=== PATIENT | female | born 1985 | race Caucasian/White ===

== ENCOUNTER 2018-11-09 10:55 | Emergency (ER) | payer MEDICAID, SELFPAY ==
[2018-11-09 11:02] VITALS: BP 135/68; PULSE 85; RESP 16; TEMP 36.2; O2SAT 98
--- NOTE | 2018-11-09 11:16 | ED.GENADUL_ITS ---
Discharge Plan Disposition Patient Disposition: HOME Condition: Fair Discharge Details Chief Complaint: Sorethroat Clinical Impression: Acute pharyngitis Primary Care Provider: Michael Yanez ED Provider: Flor Celaya Home Meds and New Rx's Prescriptions: New azithromycin 500 mg tablet 500 mg PO DAILY 5 Days Qty: 5 RF: 0 Continued prednisone 20 MG tablet PO DAILY Qty: 11 RF: 0 citalopram 20 MG tablet 20 mg PO DAILY Qty: 30 RF: 5 Discharge Instructions Instructions: Pharyngitis (ED) Additional Instructions: Encourage hydration. Tylenol and/or ibuprofen as needed for discomfort. Please take antibiotics as prescribed. Even if symptoms improve, please take entire course. If you develop new or worsening symptoms please seek care urgently once again. Otherwise, please follow-up with primary care to discuss recurrence of symptoms Referrals: Michael Yanez [Primary Care Provider] - Discharge Data Discharge Date/Time-TO BE ENTERED AT DEPARTURE: 11/09/18 11:34 Medical Decision Making Patient is a 33 year old female with c/c of sore throat x 1 week. 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 As discussed tonsillectomy with her primary care who advised that it occurs again she would need referral to ENT. States that her discomfort has been increasing. She denies any fevers or chills. No difficulty with hydration. No nausea or vomiting. Denies any abdominal pain. On exam, bilateral tonsils are notable for white exudate, hypertrophy and erythema. Uvula is midline. No trismus. No swelling of the tongue. Patient has anterior cervical lymphadenopathy. Rapid strep testing negative. Discussed these findings with the patient. She advised that she has been negative most time she is been tested with the rapid but is found to be positive a few days later with the secondary testing in the lab. Patient is requesting treatment for strep throat at this time. Clinically, this does correlate well with strep. She also reports is been tested for mono multiple times in the past. Does not believe she has Montanari she will Ceja testing again. She reports that this is exactly the same as previous episodes of streptococcal pharyngitis she has had in the past. Patient will be treated with azithromycin she has allergy to penicillin. Encourage hydration. Advised changing her toothbrush. She will contact primary care to schedule follow-up and discussed referral to ENT. All of her questions and concerns were addressed and she is in agreement this plan Patient is allergic to penicillin, will treat with azithromycin. Patient is no longer taking citalopram HPI General Mode of arrival: ambulatory . Date/Time Provider Initiated Documentation: 11/09/18 11:02 . Limitations to Documentation: no limitations . Information obtained by: patient . History of Present Illness 33 year old F presents to the emergency department with the chief complaint of sore throat, described as moderate, with intensity rated at 7. Quality is described as burning, and is localized to the mouth (throat). Patient reports no radiation. Patient started experiencing this week(s) (1) and it has been constant. No relieving factors improve symptom(s), No exacerbating factors reported . Patient notes denies chest pain, cough, fever/chills, loss of appetite, nausea/vomiting, rash and shortness of breath. Patient did receive the following treatments prior to arrival, none Related Data Home Medications Medication Instructions Recorded Confirmed prednisone 0 PO DAILY #11 tab 03/14/18 citalopram 20 mg PO DAILY #30 tab-cap 06/14/18 azithromycin 500 mg PO DAILY 5 Days #5 tab 11/09/18 Previous Rx's Medication Instructions Recorded citalopram 20 mg PO DAILY #30 tab-cap 06/14/18 azithromycin 500 mg PO DAILY 5 Days #5 tab 11/09/18 Allergies Allergy/AdvReac Type Severity Reaction Status Date / Time Penicillins Allergy Unknown unknown Unverified 11/09/18 11:27 General Stated Complaint: Sorethroat SIOBHAN: 4 Review of Systems Constitutional Reports as per HPI and Denies headache(s) Eyes Reports as per HPI, Denies eye discharge and Denies irritation ENT Reports as per HPI, Denies ear discharge, Reports otalgia (left), Denies headache(s), Denies nasal congestion, Denies nasal discharge, Reports sore throat, Reports throat swelling and Denies tongue swelling Cardiovascular Reports as per HPI, Denies chest pain and Denies dyspnea Respiratory Reports as per HPI, Denies cough and Denies dyspnea Gastrointestinal Reports as per HPI, Denies abdominal pain, Denies change in bowel habits, Denies nausea and Denies vomiting Integumentary/Breasts Reports as per HPI and Denies rash Neurologic Denies headache(s) Allergic/Immunologic Reports throat swelling and Denies tongue swelling PFS Social History Smoking/Tobacco Use Status: Former Tobacco Use Exam Const General: cooperative, healthy appearing, comfortable, no acute distress, well developed and well groomed Nutritional Appearance: average body habitus and well nourished Orientation: alert and awake [facility] Head: normal to inspection, normocephalic and atraumatic Ears: hearing grossly normal bilaterally, external ears normal and TM's normal bilaterally General nose exam: external nose normal and nares normal Face and sinus: normal facial exam, sinuses nontender and face symmetric Mouth: oral mucosae normal, lip normal, tongue normal, oropharynx normal, moist mucous membranes, no muffled voice, no trismus and No restricted motion Teeth and gingiva: dentition normal Throat: uvula midline, abnormal tonsil bilaterally erythema, exudates and hypertrophy, no peritonsillar masses, posterior oropharynx abnormal erythema and exudates, uvula not displaced and no uvular edema Eyes General: appearance normal, both eyes and all related structures Neck Neck: normal visual inspection, full ROM, no meningeal signs, lymphadenopathy and tender Resp Effort & Inspection: normal respiratory effort, able to speak in complete sentences and no respiratory distress Auscultation: clear to auscultation bilaterally, no rales, no rhonchi and no wheezes Cardio Rate: regular rate Rhythm: regular rhythm Heart Sounds: S1 normal and S2 normal Skin General skin exam: no rashes or lesions noted Neuro General: alert and awake Cognition: normal cognition Speech: speech normal Gait: normal gait Psych Appearance: grossly normal and well kempt Mental Status: mental status grossly normal Speech and Movement: speech and movement normal Course Vital Signs Temperature 36.2 C L 11/09/18 11:02 Pulse 85 11/09/18 11:02 Respiratory Rate 16 11/09/18 11:02 Blood Pressure 135/68 11/09/18 11:02 Pulse Oximetry 98 11/09/18 11:02 Temperature 36.2 C L 11/09/18 11:02 Temperature Source Skin 11/09/18 11:02 Pulse 85 11/09/18 11:02 Respiratory Rate 16 11/09/18 11:02 Blood Pressure 135/68 11/09/18 11:02 Blood Pressure Position Supine 11/09/18 11:02 Pulse Oximetry 98 11/09/18 11:02 Oxygen Delivery Method Room Air 11/09/18 11:02 Oxygen Flow Rate 0 11/09/18 11:02 Pain Level 7 11/09/18 11:02
[2018-11-09 11:32] VITALS: BP 135/68; PULSE 85; RESP 16; TEMP 36.2; O2SAT 98
== END 2018-11-09 11:34 | disposition home or self-care (01) ==
PROVIDERS: Emergency Provider Physician Assistant; PCP Family Medicine
DX: J02.9 Acute pharyngitis, unspecified (principal); Z87.891 Personal history of nicotine dependence
CPT/HCPCS: 87880; 99283; 87081

== ENCOUNTER 2019-09-17 07:39 | Emergency (ER) | payer MEDICAID, SELFPAY ==
[2019-09-17 07:46] VITALS: BP 124/81; PULSE 98; RESP 16; TEMP 36.8; O2SAT 100
--- NOTE | 2019-09-17 08:11 | DI.RAD_ITS ---
EXAM: XR PELVIS AP INDICATION: Left lower back/iliac crest tenderness. COMPARISON: No exams were available for comparison TECHNIQUE: 2D digital imaging was performed. FINDINGS: No acute bone, joint, or soft tissue abnormality is present. IMPRESSION: No acute abnormality.
--- NOTE | 2019-09-17 08:11 | DI.RAD_ITS ---
EXAM: XR LUMBAR SPINE COMPLETE INDICATION: Left lower lumbar spine tenderness s/p fall. COMPARISON: CHEST 2 VIEWS PA,LAT from 11/12/2012 TECHNIQUE: 2D digital imaging was performed. FINDINGS: There are 5 lumbar type vertebral bodies. No spondylolysis or spondylolisthesis is present. There a re no acute fractures or subluxations. There is again seen deformity of the superior endplate of L1. This is unchanged compared to the chest x-ray from 11/12/2012. Minimal degenerative changes are se en in the lumbar spine. IMPRESSION: No acute abnormality.
[2019-09-17] MEDS: Acetaminophen 500 MG TAB 1000 MG PO (08:23)
--- NOTE | 2019-09-17 08:38 | W.ED.GENAD ---
Discharge Plan Disposition Patient Disposition: HOME Discharge Details Chief Complaint: Nk/Back Pain Clinical Impression: Lower back injury Primary Care Provider: Michael Yanez ED Provider: Emigdio Lombardo Discharge Instructions Instructions: Low Back Strain (ED), Acute Low Back Pain (ED) Additional Instructions: Your x-rays were negative for fracture in the emergency depart today. Most likely muscular injury. Appropriate rest is important for healing. Work note provided. Start taking Tylenol 1000 mg every 8 hours and ibuprofen 600 mg every 8 hours regularly for pain. Return to the emergency department should your pain significantly increase or you develop abdominal tenderness, numbness/weakness in the lower legs. Follow-up with your primary care provider should your symptoms persist. Stand Alone Forms: Work Release Referrals: Michael Yanez. [Primary Care Provider] - 1 week Medical Decision Making This is a nontoxic-appearing 34-year-old female who presents to the emergency department with left lower back pain status post fall Tuesday evening. Neurologically intact on exam. She has focal tenderness over the left lower paraspinal tenderness radiating up over the left iliac crest. Abdominal exam is benign. Vitals are stable here. Her x-rays show no acute obvious bony injury. Discussed supportive measures at home including local modalities and appropriate ibuprofen/acetaminophen dosing. Return precautions discussed as well which would include severe worsening pain, abdominal pain, vomiting, numbness and/or weakness of the extremities. She will follow-up with her primary care provider should her symptoms persist. HPI General Date/Time Provider Initiated Documentation: 09/17/19 07:58. HPI Narrative: Patient is a 34-year-old female with no significant past medical history who presents to the emergency department with left lower back pain status post fall 1939 8 hours ago. Patient states that she was walking up stairs roughly 6 steps when she fell backwards striking her lower left back. She does report a head injury but no LOC. She denies any headache at this time. No neck pain. Her biggest complaint is lower left posterior hip/lumbar back pain. She states pain is worse with ambulation. She reports shooting pain when she steps on her left foot originating from the back of the leg up to the back. No numbness or tingling in the foot. She denies any urinary or fecal incontinence/retention. She takes no medications on a regular basis. Related Data Allergies Allergy/AdvReac Type Severity Reaction Status Date / Time Penicillins Allergy Unknown unknown Unverified 09/17/19 07:49 General Stated Complaint: Nk/Back Pain SIOBHAN: 4 Review of Systems Constitutional Constitutional: Denies headache(s) and Denies weakness ENT Ears, Nose, Mouth, and Throat: Denies headache(s) and Denies neck pain Cardiovascular Cardiovascular: Denies pedal edema, Denies edema, Denies claudication and Denies dyspnea Respiratory Respiratory: Denies dyspnea Gastrointestinal Gastrointestinal: Denies abdominal pain and Denies vomiting Genitourinary Genitourinary: Denies hematuria Musculoskeletal Musculoskeletal: Reports abnormal gait, Reports back pain, Denies joint swelling, Denies limited range of motion, Denies neck pain, Denies numbness and Reports radiating pain into limb Neurologic Neurologic: Reports abnormal gait, Denies confusion, Denies headache(s), Denies focal weakness, Denies numbness, Reports radicular pain and Denies weakness Psychiatric Psychiatric: Denies confusion [facility] Social History Smoking/Tobacco Use Status: Former Tobacco Use Drug use: Never Do you feel safe in your relationship?: Yes Exam Const General: cooperative, healthy appearing and no acute distress Orientation: alert, awake and oriented x3 HENMT Head: normal to inspection Face and sinus: normal facial exam Mouth: oral mucosae normal Eyes General: appearance normal, both eyes and all related structures Pupils: PERRL EOM: EOM intact bilaterally Neck Neck: normal visual inspection, full ROM and trachea midline Chest Chest: normal inspection of the chest and normal palpation of entire chest wall Resp Effort & Inspection: normal respiratory effort Auscultation: clear to auscultation bilaterally Cardio Rate: regular rate Rhythm: regular rhythm Pulses: normal peripheral pulses GI Inspection: normal to inspection and no abdominal wall ecchymosis Palpation: soft Back/Spine/Pelvis Back: no CVA tenderness Thoracic/Lumbar Spine: pain with thoraco-lumbar ROM, paraspinal tenderness (Left lower lumbar region), thoraco-lumbar ROM limited, No thoracic spinal tenderness and No lumbar spinal tenderness Pelvis: no pain with anterior-posterior compression and no pain with lateral compression Skin Trauma: no lacerations or abrasions Neuro Motor: muscle tone normal throughout Sensory Exam: no sensory deficits noted Course Vital Signs Vital signs: Vital Signs Temperature 36.8 C 09/17/19 07:46 Pulse 98 H 09/17/19 07:46 Respiratory Rate 16 09/17/19 07:46 Blood Pressure 124/81 09/17/19 07:46 Pulse Oximetry 100 09/17/19 07:46 Temperature 36.8 C 09/17/19 07:46 Temperature Source Skin 09/17/19 07:46 Pulse 98 H 09/17/19 07:46 Respiratory Rate 16 09/17/19 07:46 Respiratory Effort Non-Labored 09/17/19 07:46 Blood Pressure 124/81 09/17/19 07:46 Blood Pressure Position Sitting 09/17/19 07:46 Pulse Oximetry 100 09/17/19 07:46 Oxygen Delivery Method Room Air 09/17/19 07:46 Oxygen Flow Rate 0 09/17/19 07:46 Pain Level 7 09/17/19 07:46
== END 2019-09-17 09:02 | disposition home or self-care (01) ==
LOC: ER 09:01
PROVIDERS: Emergency Provider Physician Assistant; PCP Family Medicine
DX: S39.92XA Unspecified injury of lower back, initial encounter (principal); W01.0XXA Fall on same level from slipping, tripping and stumbling without subsequent striking against object, initial encounter
CPT/HCPCS: 99284; 72110; 72170; 99282

== ENCOUNTER 2020-01-07 13:49 | Emergency (ER) | payer MEDICAID, SELFPAY ==
[2020-01-07 14:00] VITALS: BP 119/70; PULSE 75; RESP 16; TEMP 36.8; O2SAT 99
--- NOTE | 2020-01-07 14:28 | ED.GENADUL_ITS ---
Discharge Plan Disposition Patient Disposition: HOME Condition: Stable Discharge Details Chief Complaint: DentalOral Clinical Impression: Candidiasis, mouth Primary Care Provider: Michael Yanez ED Provider: Foster Velásquez Home Meds and New Rx's Prescriptions: New clotrimazole 10 mg leonidas 10 mg MM QID 14 Days Qty: 56 RF: 0 Discharge Instructions Instructions: Oral Candidiasis (ED) Additional Instructions: Clotrimazole as directed. Please watch for new or worsening symptoms and return to the ER for any concerns I do recommend follow-up with your primary care perico marin in the next week or 2, if symptoms persist then larger work-up may be indicated. Medical Decision Making 34-year-old female otherwise healthy presents with what appears to be thrush. Patient has no obvious risk factors. Discussed that we would treat at this time for thrush however she was encouraged to return immediately to the ER for new or worsening symptoms. If symptoms persist or evolve a much larger work-up may need to be initiated as thrush and an otherwise healthy person is somewhat peculiar. Patient is comfortable with this plan has no questions or concerns Medical Records Medical records reviewed: Yes I reviewed the patient's medical records. HPI General Mode of arrival: ambulatory . Date/Time Provider Initiated Documentation: 01/07/20 14:06 . Limitations to Documentation: no limitations . Information obtained by: patient . HPI Narrative: 34-year-old female otherwise healthy presents for white patches on her past week or so. They are nonpainful. When she brushes her teeth and tongue, the white patches partially come off. She denies any other symptoms whatsoever. Denies ear pain, cough, fever, sore throat, skin rash. Patient reports that she had gestational diabetes but does not have diabetes. She contacted her primary care provider and they could not see her for another week so she came to the ER for evaluation. Related Data Home Medications Medication Instructions Recorded Confirmed clotrimazole 10 mg MM QID 14 Days #56 tab 01/07/20 Previous Rx's Medication Instructions Recorded clotrimazole 10 mg MM QID 14 Days #56 tab 01/07/20 Allergies Allergy/AdvReac Type Severity Reaction Status Date / Time Penicillins Allergy Unknown unknown Unverified 01/07/20 14:06 General Stated Complaint: DentalOral SIOBHAN: 4 Review of Systems Constitutional Constitutional: Denies chills, Denies fever(s), Denies headache(s) and Denies poor appetite Eyes Eyes: Denies eye discharge ENT Ears, Nose, Mouth, and Throat: Denies headache(s), Denies mouth pain, Denies neck pain and Denies sore throat Respiratory Respiratory: Denies cough Gastrointestinal Gastrointestinal: Denies abdominal pain, Denies nausea and Denies vomiting Musculoskeletal Musculoskeletal: Denies myalgias and Denies neck pain Integumentary/Breasts Skin/Breast: Denies rash Neurologic Neurologic: Denies headache(s) [facility] Social History Smoking/Tobacco Use Status: Current every day Tobacco Type: cigarettes Alcohol Intake: current Alcohol Intake frequency: a few times a month Drug use: Never Do you feel safe at home: Yes Do you feel safe in your relationship?: Yes Exam Const General: cooperative, healthy appearing, comfortable and no acute distress Orientation: alert and awake HENMT Head: normal to inspection, normocephalic and atraumatic Ears: external ears normal, TM's normal bilaterally and EAC's normal Mouth: moist mucous membranes and tongue abnormal with white coating (Patchy in nature) Teeth and gingiva: dentition normal Throat: posterior oropharynx normal Eyes Conjunctivae: conjunctivae normal Neck Neck: normal visual inspection, full ROM, no lymphadenopathy, no meningeal signs, trachea midline and supple Resp Effort & Inspection: normal respiratory effort Auscultation: clear to auscultation bilaterally Cardio Rate: regular rate Rhythm: regular rhythm Skin General skin exam: no rashes or lesions noted Neuro General: alert, awake and no focal motor deficits Speech: speech normal Sensory Exam: no sensory deficits noted Extrem General: normal to inspection Psych Appearance: grossly normal Mental Status: mental status grossly normal Course Vital Signs Vital signs: Vital Signs Temperature 36.8 C 01/07/20 14:00 Pulse 75 01/07/20 14:00 Respiratory Rate 16 01/07/20 14:00 Blood Pressure 119/70 01/07/20 14:00 Pulse Oximetry 99 01/07/20 14:00 Temperature 36.8 C 01/07/20 14:00 Temperature Source Temporal Artery Scan 01/07/20 14:00 Pulse 75 01/07/20 14:00 Respiratory Rate 16 01/07/20 14:00 Respiratory Effort Non-Labored 01/07/20 14:05 Blood Pressure 119/70 01/07/20 14:00 Blood Pressure Position Sitting 01/07/20 14:00 Pulse Oximetry 99 01/07/20 14:00 Oxygen Delivery Method Room Air 01/07/20 14:00 Oxygen Flow Rate 0 01/07/20 14:00 Pain Level 0 01/07/20 14:07
== END 2020-01-07 14:37 | disposition home or self-care (01) ==
PROVIDERS: Emergency Provider Physician Assistant; PCP Family Medicine
DX: B37.0 Candidal stomatitis (principal)
CPT/HCPCS: 99283

== ENCOUNTER 2020-02-18 10:03 | Outpatient (CLI) | payer MEDICAID, SELFPAY ==
[2020-02-18 10:46] LABS: HCG Quant, Pregnancy 58 mIU/mL (1-3)
[2020-02-19 14:11] LABS: Chlamydia Result Negative (Negative); GC Result Negative (Negative)
== END 2020-02-18 10:23 ==
PROVIDERS: PCP Family Medicine; Visit Provider Nurse Practitioner Family
DX: Z11.3 Encounter for screening for infections with a predominantly sexual mode of transmission (principal); Z32.01 Encounter for pregnancy test, result positive
CPT/HCPCS: 36415; 87491; 87591; 84702

== ENCOUNTER 2020-02-20 12:26 | Outpatient (CLI) | payer MEDICAID, SELFPAY ==
[2020-02-20 13:17] LABS: HCG Quant, Pregnancy 24 mIU/mL (1-3)
[2020-02-21 09:33] LABS: Hepatitis C Ab w Rflx HCV PCR Negative (Negative)
[2020-02-21 09:58] LABS: Hepatitis B Surface Ag Negative (Negative)
[2020-02-21 11:10] LABS: HIV-1/2 Ag & Ab Screen Negative (Negative)
[2020-02-21 14:08] LABS: Syphilis Total Ab w/Reflex Nonreactive (Nonreactive)
== END 2020-02-20 12:46 ==
PROVIDERS: Nurse Practitioner Family; PCP Family Medicine; Visit Provider Obstetrics & Gynecology
DX: N93.8 Other specified abnormal uterine and vaginal bleeding (principal); Z32.01 Encounter for pregnancy test, result positive; Z98.51 Tubal ligation status; Z11.4 Encounter for screening for human immunodeficiency virus [HIV]; Z11.59 Encounter for screening for other viral diseases
CPT/HCPCS: 36415; 86803; 87340; 87389; 84702; 86780

== ENCOUNTER 2020-02-27 01:07 | Outpatient (CLI) | payer MEDICAID, SELFPAY ==
[2020-02-27 14:42] LABS: HCG Quant, Pregnancy 1 mIU/mL (1-3)
== END 2020-02-27 01:27 ==
PROVIDERS: PCP Family Medicine; Visit Provider Obstetrics & Gynecology
DX: O03.9 Complete or unspecified spontaneous abortion without complication (principal); Z98.51 Tubal ligation status
CPT/HCPCS: 36415; 84702

== ENCOUNTER 2021-03-17 03:00 | Outpatient (CLI) | payer MEDICAID, SELFPAY ==
[2021-03-18 13:30] LABS: COVID-19 RT-PCR UVMMC Result Negative (Negative)
== END 2021-03-17 03:01 | disposition home or self-care (01) ==
LOC: LBO 03:01
PROVIDERS: PCP Family Medicine; Visit Provider Family Medicine
DX: Z20.822 Contact with and (suspected) exposure to COVID-19 (principal)
CPT/HCPCS: U0003

== ENCOUNTER 2021-06-18 08:40 | Observation (INO) | payer MEDICAID, SELFPAY ==
[2021-06-18] VITALS (38 sets, daily range): BP systolic 103–149; BP diastolic 63–118; PULSE 69–124; RESP 13–30; TEMP 36–36.7; O2SAT 98–100
--- NOTE | 2021-06-18 08:45 | RT.EKG_ITS ---
APPROVED REPORT Exam: Resting ECG Reason for Exam: chest pain Patient Location: E HR:101 bpm ECG Measurements Heart Rate 101 AXIS WV 184 P 72 QRSd 84 QRS 67 QT 361 T -2 QTc 468 Conclusion Sinus tachycardia. Narrow complex qrs
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
[2021-06-18] MEDS: ACETAMINOPHEN 1,000 MG/100 ML BTL 400 MG IVPB (09:20)
[2021-06-18 09:35] LABS: Abs Immature Grans 0.13 10^3/uL (0.0-0.06); Absolute Basophil Count 0.07 10^3/uL (0.0-0.2); Absolute Eosinophil Count 0.19 10^3/uL (0.0-0.7); Absolute Lymphocyte Count 2.12 10^3/uL (1.2-3.4); Absolute Monocyte Count 0.65 10^3/uL (0.1-0.8); Absolute Neutrophil Count 6.81 10^3/uL (1.2-6.7); Basophils % 0.7; Eosinophils % 1.9; HCT 50.5 % (36.0-46.0); HGB 17.3 g/dL (11.2-15.7); Immature Grans % 1.3; Lymphocytes % 21.3; MCH 32.3 pg (27.0-33.0); MCHC 34.3 % (32.0-36.0); MCV 94.4 fL (80-95); MPV 8.8 fL (8.0-11.0); Monocytes % 6.5; Neutrophils % 68.3; Nucleated RBC 0 %; Platelet Count 254 10^3/uL (130-400); RBC 5.35 10^6/uL (3.93-5.22); RDW 13.2 % (11.7-14.6); RDW-SD 46.5 fL; WBC 9.97 10^3/uL (4.4-10.8)
[2021-06-18 09:49] LABS: ALT 38 U/L (14-59); AST 37 U/L (15-37); Albumin 4.5 g/dL (3.4-5.0); Alkaline Phosphatase 65 U/L (46-116); Anion Gap 12.2 mmol/L (3-11); BUN 5 mg/dL (7-18); Bilirubin, Total 0.4 mg/dL (0.2-1.0); CO2 26.8 mmol/L (21.0-32.0); CREATININE 0.6 mg/dL (0.55-1.02); Calcium 9.9 mg/dL (8.5-10.1); Chloride 102 mmol/L (98-107); ETHANOL BLOOD 118.5 mg/dL (<3); Glucose 110 mg/dL (74-106); Potassium 3.5 mmol/L (3.5-5.1); Sodium 141 mmol/L (136-145); Total Protein 8.4 g/dL (6.4-8.2)
[2021-06-18 09:56] LABS: Troponin I < 0.05 ng/mL (<0.06)
[2021-06-18 10:09] LABS: HCG Qual (Serum) Negative
[2021-06-18] MEDS: Omnipaque 350 MG/ML 100 ML BTL IV (10:09)
[2021-06-18 10:25] LABS: Bilirubin Negative (Negative); Blood Moderate (Negative); Clarity Clear (Clear); Glucose Negative (Negative); Ketones Negative (Negative); Leukocyte Esterase Negative (Negative); Nitrite Negative (Negative); Urobilinogen 0.2 EU/dL (Up TO 0.2)
[2021-06-18 10:36] LABS: Bacteria Few HPF (Negative); C & S Indicated? No; Casts Negative LPF (Negative); Crystals Negative HPF (Negative); Epithelial Cells Few HPF (Negative); Mucus Negative (Negative); Other Cells Rare Renal (Negative); WBC 0-2 HPF (0-5)
[2021-06-18] MEDS: Normal Saline 1,000 ML 1000 ML IV (10:58)
[2021-06-18 11:51] LABS: Source Nasal/Nares
[2021-06-18] MEDS: Pantoprazole 40 MG VIAL IVP (12:18)
[2021-06-18] MEDS: Ketorolac 30 MG/ML VIAL IVP (12:18)
[2021-06-18 12:43] LABS: COVID-19 PCR Negative (Negative)
[2021-06-18] MEDS: oxyCODONE 5 MG TAB PO ×3 (12:57→22:03)
[2021-06-18] MEDS: Docusate Sodium 100 MG CAP PO ×2 (14:16→19:38)
--- NOTE | 2021-06-18 14:25 | W.ANESNERVE ---
Nerve Block Single Injection Procedure Date and Time Date Performed: 06/18/21 Procedure Start: 13:27 Location Where Procedure Performed Procedure Location: Med/Surg (Room 230) Reason Performed: Acute Pain Management (Right rib fractures 2,3,4) Pain Diagnosis: Rib Pain Requesting Provider: Jina Aguillon Timeout Performed Timeout Performed: Yes Monitoring Used Blood Pressure and SpO2 Sterility Sterility: Hand Hygiene, Surgical Cap, Surgical Mask, Sterile Gloves and Chlorhexidine Sedation Given During Procedure Sedation Given (Indicate Dose Given): No Sedation given (Oxycodone given to patient by RN prior to block placement) Patient Mental Status Patient Mental Status: Awake Nerve Block 1st Nerve Block: Laterality: Right Block Type: Erector Spinae (Upper) Needle / Catheter Used: 100mm SonoPlex II Local Anesthetic Bolus (Indicate Dose Given): Lidocaine used for local infiltration of skin, Injected in 3-5ml increments after negative blood aspiration, Bupivacaine 0.5% Dose:: 20mL and Exparel Dose:: 10mL Additives (Indicate Dose Given): None Ultrasound: Sterile probe cover and gel used Ultrasound Image Saved?: Yes Nerve Stimulator: Not Used Paresthesia: None Post Procedure Pain score (0-10): 0 Procedure Tolerated: No Complications and Patient tolerated well Procedure Outcome: Successful Procedure Comment: right rib pain resolved, increased ability to take deep breaths with no rib pain on right side. pt still reports pain from Left lower abdomen. Performed By: Leta Denis Supervised By: Dane Price
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
[2021-06-18] MEDS: Acetaminophen 325 MG TAB 650 MG PO ×2 (18:03→22:03)
[2021-06-19] MEDS: Acetaminophen 325 MG TAB 650 MG PO ×3 (03:46→12:10)
[2021-06-19] MEDS: oxyCODONE 5 MG TAB PO ×2 (03:46→07:54)
[2021-06-19 04:11] VITALS: BP 106/68; PULSE 71; RESP 20; TEMP 37; O2SAT 100
[2021-06-19 07:15] VITALS: BP 139/88; PULSE 70; RESP 19; TEMP 36.8
[2021-06-19 07:54] LABS: HGB 14.2 g/dL (11.2-15.7)
[2021-06-19] MEDS: Docusate Sodium 100 MG CAP PO (07:54)
[2021-06-19] MEDS: Normal Saline Flush 10 ML SYR IVP ×2 (07:54→12:12)
--- NOTE | 2021-06-19 08:46 | W.PM.PROGNOT ---
Date of Service Date of service: 06/19/21 Time of Service: 08:47 Assessment and Plan Assessment and plan (1) Minor laceration of spleen: Status: Acute (2) Closed rib fracture: Status: Acute Assessment and plan: Pain is better controlled. Discussed that she will continue to have discomfort. Discussed the importance of deep breathing periodically. She is transferring and getting around her room independently. Hgb is stable. She expressed that she would like to be d/c home today. D/C home later today. (3) Face lacerations: Status: Acute Subjective Subjective Interval history since last seen: Patient reports that her left side is more painful than right. She feels that the nerve block has started to wear off. She describes transferring and ambulating within her room independently. When I start to move and when I stop moving is when it hurts the most. Objective Last Vital Signs Temp 36.8 C 06/19/21 07:15 Pulse 70 06/19/21 07:15 Resp 19 06/19/21 07:15 BP 139/88 06/19/21 07:15 Pulse Ox 100 06/19/21 04:11 Laboratory Results - last 24 hr 06/18/21 06/18/21 06/18/21 09:20 09:20 09:20 WBC 9.97 RBC 5.35 H Hgb 17.3 H Hct 50.5 H MCV 94.4 MCH 32.3 MCHC 34.3 RDW 13.2 Plt Count 254 MPV 8.8 Immature Gran % 1.3 Neutrophils % 68.3 Lymphocytes % 21.3 Monocytes % 6.5 Eosinophils % 1.9 Basophils % 0.7 Nucleated RBC % 0 Absolute Neutrophils 6.81 H Absolute Lymphocytes 2.12 Absolute Monocytes 0.65 Absolute Eosinophils 0.19 Absolute Basophils 0.07 Sodium 141 Potassium 3.5 Chloride 102 Carbon Dioxide 26.8 Anion Gap 12.2 H BUN 5 L Creatinine 0.6 Estimated GFR/1.73 m2 >= 60.00 Glucose 110 H Calcium 9.9 Total Bilirubin 0.4 AST 37 ALT 38 Alkaline Phosphatase 65 Troponin I Total Protein 8.4 H Albumin 4.5 Serum HCG, Qual Negative Urine Color Urine Clarity Urine pH Ur Specific [place] Urine Protein Urine Ketones Urine Blood Urine Nitrite Urine Bilirubin Urine Urobilinogen Ur Leukocyte Esterase Urine RBC Urine WBC Ur Epithelial Cells Urine Crystals Urine Bacteria Urine Casts Urine Mucus Urine Other Ur Culture Indicated? Urine Glucose Ethyl Alcohol 118.5 COVID-19 Source SARS-CoV-2 (PCR) Patient ABO/Rh Antibody Screen 06/18/21 06/18/21 06/18/21 09:20 10:16 10:50 WBC RBC Hgb Hct MCV MCH MCHC RDW Plt Count MPV Immature Gran % Neutrophils % Lymphocytes % Monocytes % Eosinophils % Basophils % Nucleated RBC % Absolute Neutrophils Absolute Lymphocytes Absolute Monocytes Absolute Eosinophils Absolute Basophils Sodium Potassium Chloride Carbon Dioxide Anion Gap BUN Creatinine Estimated GFR/1.73 m2 Glucose Calcium Total Bilirubin AST ALT Alkaline Phosphatase Troponin I < 0.05 Total Protein Albumin Serum HCG, Qual Urine Color Yellow Urine Clarity Clear Urine pH 6.0 Ur Specific [place] 1.010 Urine Protein Negative Urine Ketones Negative Urine Blood Moderate H Urine Nitrite Negative Urine Bilirubin Negative Urine Urobilinogen 0.2 Ur Leukocyte Esterase Negative Urine RBC 5-10 H Urine WBC 0-2 Ur Epithelial Cells Few Urine Crystals Negative Urine Bacteria Few Urine Casts Negative Urine Mucus Negative Urine Other Rare Renal Ur Culture Indicated? No Urine Glucose Negative Ethyl Alcohol COVID-19 Source SARS-CoV-2 (PCR) Patient ABO/Rh O Negative Antibody Screen NEGATIVE 06/18/21 06/18/21 06/19/21 11:45 11:52 07:10 WBC RBC Hgb 14.2 D Hct MCV MCH MCHC RDW Plt Count MPV Immature Gran % Neutrophils % Lymphocytes % Monocytes % Eosinophils % Basophils % Nucleated RBC % Absolute Neutrophils Absolute Lymphocytes Absolute Monocytes Absolute Eosinophils Absolute Basophils Sodium Potassium Chloride Carbon Dioxide Anion Gap BUN Creatinine Estimated GFR/1.73 m2 Glucose Calcium Total Bilirubin AST ALT Alkaline Phosphatase Troponin I Cancelled Total Protein Albumin Serum HCG, Qual Urine Color Urine Clarity Urine pH Ur Specific [place] Urine Protein Urine Ketones Urine Blood Urine Nitrite Urine Bilirubin Urine Urobilinogen Ur Leukocyte Esterase Urine RBC Urine WBC Ur Epithelial Cells Urine Crystals Urine Bacteria Urine Casts Urine Mucus Urine Other Ur Culture Indicated? Urine Glucose Ethyl Alcohol COVID-19 Source Nasal/Nares SARS-CoV-2 (PCR) Negative Patient ABO/Rh Antibody Screen
[2021-06-19] MEDS: Pantoprazole 40 MG VIAL IVP (12:10)
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
== END 2021-06-19 13:37 | disposition home or self-care (01) ==
LOC: ER 11:46 → MS 12:32
PROVIDERS: Admitting Provider Surgery; Emergency Provider Physician Assistant; PCP Family Medicine; Visit Provider Surgery
DX: S36.030A Superficial (capsular) laceration of spleen, initial encounter (principal); S01.112A Laceration without foreign body of left eyelid and periocular area, initial encounter; S22.41XA Multiple fractures of ribs, right side, initial encounter for closed fracture; S01.111A Laceration without foreign body of right eyelid and periocular area, initial encounter; F10.129 Alcohol abuse with intoxication, unspecified; V89.0XXA Person injured in unspecified motor-vehicle accident, nontraffic, initial encounter
CPT/HCPCS: 12011; 36415; 74177; 76942; 80053; 86850; 86900; 86901; 87635; 90471; 93005; 96361; 96365; 96375; 99291; 70450; 71260; 72125; 80320; 81003; 81015; 84484; 84703; 85018; 85025; 93010; G0378; J0131; J1885; J3490

== ENCOUNTER 2021-06-24 07:10 | Emergency (ER) | payer MEDICAID, SELFPAY ==
[2021-06-24 07:15] VITALS: BP 148/95; PULSE 79; RESP 24; TEMP 36.8; O2SAT 99
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
[2021-06-24] MEDS: LORazepam 2 MG/ML VIAL 0.5 MG IVP ×2 (07:56→09:58)
[2021-06-24] MEDS: Normal Saline Flush 10 ML SYR IVP ×2 (07:57→08:25)
[2021-06-24] MEDS: HYDROmorphone 2 MG/ML VIAL 1 MG IVP (07:57)
[2021-06-24 08:00] LABS: Abs Immature Grans 0.04 10^3/uL (0.0-0.06); Absolute Eosinophil Count 0.19 10^3/uL (0.0-0.7); Absolute Monocyte Count 0.74 10^3/uL (0.1-0.8); Basophils % 0.5; Eosinophils % 1.7; HGB 14.9 g/dL (11.2-15.7); Immature Grans % 0.4; Lymphocytes % 16.8; MCH 32.4 pg (27.0-33.0); MCHC 33.1 % (32.0-36.0); MCV 97.8 fL (80-95); MPV 8.7 fL (8.0-11.0); Monocytes % 6.8; Neutrophils % 73.8; Nucleated RBC 0 %; Platelet Count 243 10^3/uL (130-400); RDW 13.6 % (11.7-14.6); RDW-SD 49.5 fL; WBC 10.92 10^3/uL (4.4-10.8)
[2021-06-24 08:01] LABS: Absolute Basophil Count 0.05 10^3/uL (0.0-0.2); Absolute Lymphocyte Count 1.83 10^3/uL (1.2-3.4); Absolute Neutrophil Count 8.06 10^3/uL (1.2-6.7)
[2021-06-24] MEDS: Normal Saline 1,000 ML 1000 ML IV (08:02)
[2021-06-24] MEDS: Ondansetron 4 MG/2 ML VIAL IVP (08:02)
[2021-06-24] MEDS: Normal Saline - Diluent 50 ML VIAL IV (08:23)
[2021-06-24] MEDS: Omnipaque 350 MG/ML 100 ML BTL IJ (08:23)
[2021-06-24 08:26] LABS: ALT 42 U/L (14-59); AST 24 U/L (15-37); Albumin 3.9 g/dL (3.4-5.0); Alkaline Phosphatase 59 U/L (46-116); Anion Gap 5.5 mmol/L (3-11); BUN 10 mg/dL (7-18); Bilirubin, Total 0.4 mg/dL (0.2-1.0); CO2 28.5 mmol/L (21.0-32.0); CREATININE 0.6 mg/dL (0.55-1.02); Chloride 105 mmol/L (98-107); Glucose 101 mg/dL (74-106); Potassium 3.8 mmol/L (3.5-5.1); Sodium 139 mmol/L (136-145); Total Protein 7.6 g/dL (6.4-8.2)
[2021-06-24] MEDS: Lidocaine 5% Patch 2 PATCH TP (10:29)
[2021-06-24 10:30] VITALS: BP 148/95; PULSE 79; RESP 24; TEMP 36.8; O2SAT 99
== END 2021-06-24 10:31 | disposition home or self-care (01) ==
PROVIDERS: Emergency Provider Emergency Medicine; PCP Family Medicine
DX: S46.811A Strain of other muscles, fascia and tendons at shoulder and upper arm level, right arm, initial encounter (principal); X58.XXXA Exposure to other specified factors, initial encounter
CPT/HCPCS: 36415; 74177; 80053; 96374; 96375; 96376; 99285; 71260; 85025; 99284; J2060; J2405; J3490

== ENCOUNTER 2022-01-07 13:00 | Outpatient (CLI) | payer MEDICAID, SELFPAY ==
[2022-01-07 13:52] LABS: HCG Quant, Pregnancy 1 mIU/mL (1-3)
== END 2022-01-07 13:01 | disposition home or self-care (01) ==
LOC: LBO 13:01
PROVIDERS: PCP Family Medicine; Visit Provider Nurse Practitioner Family
DX: N93.9 Abnormal uterine and vaginal bleeding, unspecified (principal)
CPT/HCPCS: 84702

== ENCOUNTER 2022-01-07 18:10 | Outpatient (CLI) | payer MEDICAID, SELFPAY | END 2022-01-07 18:11 | disposition home or self-care (01) | LOC: LBO 18:11 | PROVIDERS: PCP Family Medicine; Visit Provider Nurse Practitioner Family ==

== ENCOUNTER 2022-04-16 11:52 | Outpatient (REF) | payer MEDICAID, SELFPAY | END 2022-04-16 11:53 | disposition home or self-care (01) | LOC: LBN 11:52 | PROVIDERS: PCP Family Medicine; Visit Provider Surgery | DX: N61.1 Abscess of the breast and nipple (principal) | CPT/HCPCS: 87077; 87070; 87186; 87205 ==

== ENCOUNTER → 2022-05-10 01:41 | Outpatient (CLI) | payer MEDICAID, SELFPAY | PROVIDERS: PCP Family Medicine; Visit Provider Nurse Practitioner Family ==

== ENCOUNTER → 2022-10-19 02:09 | Outpatient (CLI) | payer OTHER, SELFPAY ==
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
== END ==
PROVIDERS: PCP Family Medicine; Visit Provider Nurse Practitioner Family
DX: M19.012 Primary osteoarthritis, left shoulder (principal); M75.82 Other shoulder lesions, left shoulder
CPT/HCPCS: 73221

== ENCOUNTER 2022-12-07 10:44 | Outpatient (CLI) | payer MEDICAID, SELFPAY ==
--- NOTE | 2022-12-07 10:30 | DI.RAD_ITS ---
Exam(s) XR SHOULDER LT COMPLETE 2+V EXAM: XR SHOULDER LT COMPLETE 2+V CLINICAL HISTORY: LEFT SHOULDER PAIN. TECHNIQUE: 2D digital imaging was performed. COMPARISON: MR MR UPPER JOINT LT WO from 10/19/2022 FINDINGS: Two views: No evidence of acute fracture. Slight upward subluxation of the humeral head in the osseous glenoid but no significant diminution of the subacromial space. No degenerative changes in the AC and glenoh umeral joints. Bone density normal. No osseous lesions. On the axial view there is a calcific dens ity seen in the soft tissues posterior to the proximal diaphysis of the humerus, this measuring 6 x 3 millimeters of questionable significance. No osseous lesions. Bone density normal. IMPRESSION: Soft tissue calcification as above. DATA REPOSITORY: RADIATION DOSE DELIVERED:
== END 2022-12-07 10:45 | disposition home or self-care (01) ==
LOC: DIORS 10:45
PROVIDERS: PCP Family Medicine; Referring Provider Family Medicine; Visit Provider Student in an Organized Health Care Education/Training Program
DX: M25.512 Pain in left shoulder (principal)
CPT/HCPCS: 73030

== ENCOUNTER 2023-03-11 16:16 | Outpatient (REF) | payer MEDICAID, SELFPAY | END 2023-03-11 16:17 | disposition home or self-care (01) | LOC: LBN 16:16 | PROVIDERS: PCP Family Medicine; Visit Provider Physician Assistant | DX: L98.8 Other specified disorders of the skin and subcutaneous tissue; L03.011 Cellulitis of right finger | CPT/HCPCS: 87077; 87070; 87205 ==

== ENCOUNTER 2024-10-05 07:48 | Outpatient (CLI) | payer MEDICAID, SELFPAY ==
--- NOTE | 2024-10-05 09:08 | DI.US_ITS ---
Exam(s) US SOFT TISS EXTREMITY/GROIN EXAM: US SOFT TISS EXTREMITY/GROIN CLINICAL HISTORY: Evaluate left groin mass R19.09 ABD PELVIC SWELLING. TECHNIQUE: Ultrasound was performed using standard protocol. COMPARISON: No exams were available for comparison FINDINGS: Sonographic assessment utilizing grayscale and color Doppler imaging was performed and targeted to th e area of clinical concern in the left groin. The patient was tender while scanning. There is an area of fluid collection with debris in the area of the soft tissue abnormality which siddharth sures 2.3 x 2.0 x 0.9 cm. There is extensive soft tissue edema in the area as well as reactive lymph nodes. IMPRESSION: Fluid collection measuring 2.3 cm in the area of clinical concern. Extensive surrounding edema. Findi ngs are suspicious for infection/abscess. DATA REPOSITORY:
== END 2024-10-05 08:08 ==
LOC: DI 07:48
PROVIDERS: PCP Family Medicine; Visit Provider Obstetrics & Gynecology
DX: R19.09 Other intra-abdominal and pelvic swelling, mass and lump (principal)
CPT/HCPCS: 76882